=== PATIENT | female | born 1975 | race Caucasian/White ===

== ENCOUNTER 2016-04-20 10:17 | Emergency (ER) | payer OTHER | END 2016-04-20 12:45 | disposition left against medical advice (07) | LOC: UCEAST 10:17 | DX: Z53.21 Procedure and treatment not carried out due to patient leaving prior to being seen by health care provider (principal); J06.9 Acute upper respiratory infection, unspecified ==

== ENCOUNTER 2017-04-16 14:50 | Emergency (ER) | payer OTHER ==
[2017-04-16] MEDS ORDERED: Ketorolac INJ* 30 MG/ML 1 ML VIAL IM ONE (16:56)
[2017-04-16] MEDS ORDERED: Dexamethasone Oral Solution* 1 MG/ML 10 ML UDC (10 MG) PO ONE (16:56)
--- NOTE | 2017-04-16 17:54 | RAD ---
INDICATION: Left shoulder pain. TECHNIQUE: 4 views of the left shoulder were obtained. FINDINGS: The bones are in normal alignment. No fracture is seen. Joint spaces appear maintained. There are calcifications adjacent to the superior lateral aspect of the humeral head suggestive of calcific tendinitis. IMPRESSION: FINDINGS SUGGESTIVE OF CALCIFIC TENDINITIS.
--- NOTE | 2017-04-16 19:40 | ED ---
Kunal Hough Natalie, scribed for Terell Alvarez MD on 04/16/17 at 1658 . Upper Extremity Pain - HPI Summary HPI Summary: The pt is a 41 y/o F presenting to the ED c/o posterior left shoulder pain starting 04/13/17, but worsening since onset. The pain radiates to right neck, elbow, and scapula. The pain is described as burning. The pain is rated 9/10. The pain is aggravated by coughing and movement. The pain is somewhat alleviated by holding arm up straight and clenching left hand. 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 Pt additionally c/o tingling in hands while sleeping. Pt denies SOB and CP. She has no associated traumas to this area. She has possible start of Carpel Tunnel Syndrome so she wears wrist braces. - History of Current Complaint Chief Complaint: ANKIThouldTinoj Stated Complaint: BURNING IN LT SHOULDER Hx Obtained From: Patient Hx Last Menstrual Period: NOW (LAST PERIOD PRIOR TO THIS WAS AUGUST 09) Onset/Duration: Started Days Ago - started 04/13/17, Still Present Severity Initially: Moderate Pain Location: Shoulder - posterior Aggravating Factor(s): Movement Alleviating Factor(s): Other - raising left arm, clenching left hand Associated Signs & Symptoms: Positive: Numbness/Tingling - Allergies/Home Medications Allergies/Adverse Reactions: Allergies Allergy/AdvReac Type Severity Reaction Status Date / Time No Known Allergies Allergy Verified 09/22/15 15:14 PMH/Surg Hx/FS Hx/Imm Hx Previously Healthy: No Endocrine/Hematology History: Denies: Hx Diabetes, Hx Thyroid Disease Cardiovascular History: Denies: Hx Hypertension Respiratory History: Denies: Hx Asthma, Hx Chronic Obstructive Pulmonary Disease (COPD) GI History: Denies: Hx Ulcer Psychiatric History: Reports: Hx Anxiety - Cancer History Cancer Type, Location and Year: skin ca - Surgical History Surgery Procedure, Year, and Place: t&a, wisdom teeth, mole to lt neck removed, leep procedure Infectious Disease History: No Infectious Disease History: Denies: Hx Hepatitis, Hx Human Immunodeficiency Virus (HIV), History Other Infectious Disease, Traveled Outside the [place] in Last 30 Days - Family History Known Family History: Positive: Hypertension, Diabetes - Social History Alcohol Use: None Substance Use Type: Reports: None Smoking Status (MU): Current Every Day Smoker Type: Cigarettes Amount Used/How Often: 1 PPD Review of Systems Negative: Chest Pain Negative: Shortness Of Breath Positive: Other - left shoulder pain that radiates to neck and elbow Neurological: Other - tingling in hand when sleeping All Other Systems Reviewed And Are Negative: Yes Physical Exam - Summary Physical Exam Summary: Appearance: Well-appearing, Well-nourished Skin: Warm, dry Eyes: Normal, Extraocular movements intact, PERRL HENT: Normal, Normal cephalic, atraumatic, Moist mucous membranes Neck: Supple, nontender, No clavicular tenderness Respiratory: Clear to auscultation Cardiovascular: Normal, S1 and S2, No murmurs, Normal radial pulses bilaterally , Normal capillary refill Abdomen: Soft, nontender, no distension Bowel: Present Musculoskeletal: Mild tenderness to palpitation of left posterior shoulder diffusing to left lateral, No edema, No AC tenderness, Full ROM with shoulder bilaterally, Normal strength and sensation to upper extremities bilaterally, Tenderness ranges from shoulder to paraspinal muscles of neck Neurological: Normal, A&Ox3 Psychiatric: Normal Triage Information Reviewed: Yes Vital Signs On Initial Exam: Initial Vitals Temp Pulse Resp BP Pulse Ox 97.8 F 88 17 151/84 99 04/16/17 14:55 04/16/17 14:55 04/16/17 14:55 04/16/17 14:55 04/16/17 14:55 Vital Signs Reviewed: Yes - [place] Coma Scale Coma Scale Total: 15 Diagnostics - Vital Signs Vital Signs Temp Pulse Resp BP Pulse Ox 04/16/17 14:55 97.8 F 88 17 151/84 99 - Laboratory Lab Statement: Any lab studies that have been ordered have been reviewed, and results considered in the medical decision making process. - Radiology Left Shoulder XR Xray Interpretation: Positive (See Comments) - Findings suggestive of calcific tendinitis. ED physician has reviewed this report. Radiology Interpretation Completed By: Radiologist - EKG 15:03 Cardiac Rate: NL EKG Rhythm: Sinus Rhythm - 74 BPM Course/Dx - Course Assessment/Plan: pt feels better after meds, instructed to fu with orthopedist for further treatment of calcific tendonitis as seen on XR. agrees to and understands dc instructinos. distal nv exam normal. - Diagnoses Provider Diagnoses: Calcific tendinitis of left shoulder region Discharge - Discharge Plan Condition: Improved Disposition: HOME Prescriptions: oxyCODONE/Acetamin 5/325 MG* [Percocet 5/325 TAB*] 1 tab PO DAILY PRN #5 tab MDD 1 tab PRN Reason: Pain - Moderate To Severe Patient Education Materials: Calcific Tendinitis (ED) Referrals: Padmini LEON,Suleiman Michaud [Primary Care Provider] - Zac Perez MD [Medical Doctor] - Gem Horta MD [Medical Doctor] - Additional Instructions: PLEASE MAKE AN APPOINTMENT WITH AN ORTHOPEDIST TO BE SEEN WITHIN 1 WEEK PLEASE RETURN IMMEDIATELY TO THE ER IF YOU HAVE ANY WORSENING OR CONCERNING SYMPTOMS PLEASE MAKE AN APPOINTMENT TO BE SEEN BY YOUR PRIMARY CARE DOCTOR WITHIN 1 WEEK The documentation as recorded by the Kunal waite Natalie accurately reflects the service I personally performed and the decisions made by me, Terell Alvarez MD.
[2017-04-16] MEDS ORDERED: oxyCODONE/Acetamin 5/325 MG* TAB PO ONE (19:59)
[2017-04-16 20:10] VITALS: BP 97/33
== END 2017-04-16 20:08 | disposition home or self-care (01) ==
LOC: ED 14:50
DX: M75.32 Calcific tendinitis of left shoulder (principal); M25.512 Pain in left shoulder; F17.210 Nicotine dependence, cigarettes, uncomplicated
CPT/HCPCS: 93005; 96372; 99282; A9270-GY; J1885

== ENCOUNTER 2017-05-19 13:38 | Emergency (ER) | payer OTHER ==
[2017-05-19 15:33] VITALS: BP 125/77
== END 2017-05-19 15:41 | disposition left against medical advice (07) ==
LOC: UCEAST 13:38
DX: M79.603 Pain in arm, unspecified (principal); Z53.21 Procedure and treatment not carried out due to patient leaving prior to being seen by health care provider

== ENCOUNTER 2018-04-06 11:57 | Emergency (ER) | payer OTHER ==
[2018-04-06] MEDS ORDERED: Ibuprofen TAB* 600 MG PO ONE (12:49)
[2018-04-06 14:39] VITALS: BP 136/72
--- NOTE | 2018-04-07 06:21 | ED ---
Lower Extremity - HPI Summary HPI Summary: Patient is a 42-year-old female presenting to the ED with a 2 day history of worsening right leg pain. She states the pain occurs immediately behind the right knee and extends up to the thigh. Endorses smoking hx, denies OCP or travel use. She states she felt a "pop" to her knee a few days ago which could be contributing to the pain. Denies redness or swelling. Endorses 8/10 pain. States she is unable to ambulate well. Denies any other symptoms. No history of diabetes. - History of Current Complaint Chief Complaint: EDExtremityLower Stated Complaint: RT LEG PAIN Time Seen by Provider: 04/06/18 12:35 Hx Obtained From: Patient Hx Last Menstrual Period: 10 days ago Onset of Pain: Immediate Onset/Duration: Hours Severity Initially: Moderate Severity Currently: Moderate Pain Intensity: 0 Pain Scale Used: 0-10 Numeric Timing: Constant Location: Is Discrete @ - right posterior leg pain Character Of Pain: Aching Associated Signs And Symptoms: Negative: Swelling, Redness, Bruising Aggravating Factor(s): Standing Alleviating Factor(s): Rest - Risk Factors Gout Risk Factors: Negative DVT Risk Factors: Negative Septic Arthritis Risk Factor: Negative - Allergies/Home Medications Allergies/Adverse Reactions: Allergies Allergy/AdvReac Type Severity Reaction Status Date / Time No Known Allergies Allergy Verified 04/06/18 12:02 PMH/Surg Hx/FS Hx/Imm Hx Previously Healthy: Yes Endocrine/Hematology History: Denies: Hx Diabetes, Hx Thyroid Disease Cardiovascular History: Denies: Hx Hypertension Respiratory History: Denies: Hx Asthma, Hx Chronic Obstructive Pulmonary Disease (COPD) GI History: Denies: Hx Ulcer Psychiatric History: Reports: Hx Anxiety - Cancer History Cancer Type, Location and Year: skin cancer - Surgical History Surgery Procedure, Year, and Place: t&a, wisdom teeth, mole to lt neck removed, leep procedure - Immunization History Hx Pertussis Vaccination: No Immunizations Up to Date: Yes Infectious Disease History: No Infectious Disease History: Denies: Hx Hepatitis, Hx Human Immunodeficiency Virus (HIV), History Other Infectious Disease, Traveled Outside the [place] in Last 30 Days - Family History Known Family History: Positive: Hypertension, Diabetes - Social History Occupation: Employed Full-time Lives: With Family Alcohol Use: None Hx Substance Use: No Substance Use Type: Reports: None Hx Tobacco Use: Yes Smoking Status (MU): Current Every Day Smoker Type: Cigarettes Amount Used/How Often: 1 PPD Review of Systems Negative: Fever, Chills, Fatigue, Skin Diaphoresis Negative: Palpitations, Chest Pain Negative: Shortness Of Breath, Cough Genitourinary: Negative Positive: no symptoms reported, see HPI Positive: Arthralgia - right posterior leg pain. Negative: Myalgia Neurological: Negative All Other Systems Reviewed And Are Negative: Yes Physical Exam Triage Information Reviewed: Yes Vital Signs On Initial Exam: Initial Vitals Temp Pulse Resp BP Pulse Ox 98.1 F 93 20 158/77 99 04/06/18 12:00 04/06/18 12:00 04/06/18 12:00 04/06/18 12:00 04/06/18 12:00 Vital Signs Reviewed: Yes Appearance: Positive: Well-Nourished Skin: Positive: Skin Color Reflects Adequate Perfusion Head/Face: Positive: Normal Head/Face Inspection Eyes: Positive: EOMI, ADI, Conjunctiva Clear Neck: Positive: Supple, No Lymphadenopathy Respiratory/Lung Sounds: Positive: Clear to Auscultation, Breath Sounds Present Cardiovascular: Positive: RRR, Pulses are Symmetrical in both Upper and Lower Extremities Musculoskeletal: Positive: Normal, Strength/ROM Intact - This time Neurological: Positive: Speech Normal Psychiatric: Positive: Affect/Mood Appropriate - care AVPU Assessment: Alert Diagnostics - Vital Signs Vital Signs Temp Pulse Resp BP Pulse Ox 04/06/18 14:37 98.4 F 78 14 136/72 97 04/06/18 12:00 98.1 F 93 20 158/77 99 - Laboratory Lab Statement: Any lab studies that have been ordered have been reviewed, and results considered in the medical decision making process. Lower Extremity Course/Dx - Course Course Of Treatment: During the course of treatment, the patient is evaluated for right leg pain. She states she felt a "pop" behind the knee a few days ago and now is having worsening pain. US obtained which is negative for DVT. She is encouraged ibuprofen and heat. She is also c/o sinus pressure and pain between the eyes and behind the eyes with copious amounts of the nasal drainage green and yellow in color. On physical examination, there is pressure to the maxillary sinuses and frontal sinuses. She is given Augmentin. - Diagnoses Provider Diagnoses: Sinusitis, Pain in posterior right lower extremity Discharge - Sign-Out/Discharge Documenting (check all that apply): Patient Departure - Discharge Plan Condition: Stable Disposition: HOME Prescriptions: Amoxicillin/Clavulanate TAB* [Augmentin TAB 875*] 875 mg PO BID #10 tab Ibuprofen 600 mg PO TID PRN #30 tablet MDD 3 PRN Reason: Pain Referrals: Padmini LEON,Suleiman Michaud [Primary Care Provider] - Additional Instructions: Moist heat to the area Ibuprofen 600mg three times daily gentle stretches of the hamstring and quadricep No evidence of a DVT on todays visit augmentin twice daily x 5 days Continue to use your neti-pot and any nasal sprays - Billing Disposition and Condition Condition: STABLE Disposition: Home
== END 2018-04-06 14:37 | disposition home or self-care (01) ==
LOC: ED 11:57
DX: M79.661 Pain in right lower leg (principal); Z85.828 Personal history of other malignant neoplasm of skin; F17.210 Nicotine dependence, cigarettes, uncomplicated; J32.9 Chronic sinusitis, unspecified
CPT/HCPCS: 99282; A9270-GY

== ENCOUNTER 2019-01-18 13:39 | Emergency (ER) | payer OTHER ==
[2019-01-18 13:53] VITALS: BP 116/76
--- NOTE | 2019-01-18 14:18 | UC ---
Throat Pain/Nasal Thony HPI - HPI Summary HPI Summary: 43-year-old woman comes in with chief complaint of one week of upper respiratory tract infection symptoms. She's having sinus pressure and green rhinorrhea postnasal drip beginning to have a dry cough. Patient is a smoker. No recent fevers. She has used albuterol in the past when she has bronchitis. Denies any wheezing at this stage. - History of Current Complaint Chief Complaint: UCRespiratory Stated Complaint: SINUS COMPLAINT Time Seen by Provider: 01/18/19 13:54 Hx Last Menstrual Period: 10 days ago Pain Intensity: 6 - Allergies/Home Medications Allergies/Adverse Reactions: Allergies Allergy/AdvReac Type Severity Reaction Status Date / Time No Known Allergies Allergy Verified 01/18/19 13:53 PMH/Surg Hx/FS Hx/Imm Hx Previously Healthy: Yes - Surgical History Surgical History: Yes Surgery Procedure, Year, and Place: t&a, wisdom teeth, mole to lt neck removed, leep procedure - Family History Known Family History: Positive: Hypertension, Diabetes - Social History Alcohol Use: Rare Substance Use Type: None Smoking Status (MU): Heavy Every Day Tobacco Smoker Type: Cigarettes Amount Used/How Often: 1 PPD Review of Systems All Other Systems Reviewed And Are Negative: Yes Constitutional: Positive: Negative Skin: Positive: Negative Eyes: Positive: Negative ENT: Positive: Sore Throat, Nasal Discharge, Sinus Congestion, Sinus Pain/ Tenderness Respiratory: Positive: Cough Cardiovascular: Positive: Negative Gastrointestinal: Positive: Negative Motor: Positive: Negative Neurovascular: Positive: Negative Musculoskeletal: Positive: Negative Neurological: Positive: Negative Psychological: Positive: Negative Is Patient Immunocompromised?: No Physical Exam Triage Information Reviewed: Yes Appearance: No Pain Distress, Well-Nourished, Ill-Appearing - MILD Vital Signs: Initial Vital Signs Temp 97.1 F 01/18/19 13:48 Pulse 88 01/18/19 13:48 Resp 18 01/18/19 13:48 BP 116/76 01/18/19 13:48 Pulse Ox 99 01/18/19 13:48 Vital Signs Reviewed: Yes Eye Exam: Normal Eyes: Positive: Conjunctiva Clear ENT: Positive: Pharyngeal erythema, Nasal congestion, Nasal drainage, TMs normal Neck: Positive: Supple Respiratory: Positive: Lungs clear, Normal breath sounds, No respiratory distress Cardiovascular: Positive: RRR Musculoskeletal: Positive: Strength Intact, ROM Intact Neurological: Positive: Alert Psychological: Positive: Age Appropriate Behavior Skin Exam: Normal Throat Pain/Nasal Course/Dx - Course Course Of Treatment: DISCUSSED VIRAL VERSES BACTERIAL INFECTIONS AND THE ROLE OF ANTIBIOTICS. THE PATIENT PREFERS TO BE ON ANTIBIOTICS AT THIS TIME. - Differential Dx/Diagnosis Provider Diagnosis: Sinusitis Discharge ED - Sign-Out/Discharge Documenting (check all that apply): Patient Departure All imaging exams completed and their final reports reviewed: No Studies - Discharge Plan Condition: Stable Disposition: HOME Prescriptions: Amoxicillin/Clavulanate TAB* [Augmentin TAB 875*] 875 mg PO BID #20 tab Patient Education Materials: Sinusitis (ED) Referrals: Padmini LEON,Suleiman Michaud [Primary Care Provider] - Additional Instructions: FOLLOW UP WITH YOUR DOCTOR IF NOT COMPLETELY IMPROVED. GET RECHECKED SOONER IF YOUR CONDITION WORSENS OR ANY QUESTIONS OR CONCERNS. - Billing Disposition and Condition Condition: STABLE Disposition: Home
== END 2019-01-18 15:18 | disposition home or self-care (01) ==
LOC: UCEAST 13:39
DX: J32.9 Chronic sinusitis, unspecified (principal); F17.210 Nicotine dependence, cigarettes, uncomplicated
CPT/HCPCS: 99212; G0463